=== PATIENT | male | born 1995 | race Caucasian/White ===

== ENCOUNTER 2017-05-27 16:34 | Emergency (ER) | payer SELFPAY ==
--- NOTE | 2017-05-27 17:35 | ED Physician Chart ---
Chief Complaint/HPI - Patient Information Date Seen:: 05/27/17 Time Seen:: 16:50 Chief Complaint:: Diffuse abdominal cramp since last evening. History of Present Illness:: Pt came in by private auto because of constant diffuse abdominal crampy pain since 11 pm yesterday. Pain can be aggravated with body movements. No fever. Transient N/V earlier this afternoon. Vomitus consists of gastric content. No hematemesis. Last BM at about 4 pm today that was slightly loose. No hematochezia or melena. No lightheadedness. Pt denies any recent travel, antibiotic use, or ingestion of any contaminated food or liquid. Allergies:: Allergies Allergy/AdvReac Type Severity Reaction Status Date / Time No Known Allergies Allergy Verified 05/27/17 16:55 Vitals:: Vital Signs - 8 hr 05/27/17 17:00 Temp 98.1 F HR 83 RR 17 BP 139/72 O2 Sat % 97 Historian:: Patient Family MD/PCP:: unknown LMP:: N/A Review:: Nurse's Note Reviewed Review of Systems - Review of Systems General/Constitutional: No fever, No chills, No weight loss, No weakness, No diaphoresis, No edema, Loss of appetite (?) Skin: No skin lesions, No rash, No bruising Head: No headache, No light-headedness Eyes: No loss of vision, No pain, No diplopia ENT: No earache, No nasal drainage, No sore throat, No tinnitus Neck: No neck pain, No swelling, No thyromegaly, No stiffness, No mass noted Cardio Vascular: No chest pain, No palpitations, No edema Pulmonary: No SOB, No cough, No wheezing GI: Nausea, Vomiting (transient), Diarrhea (Nonbloody loose stool, see HPI.), Pain, No melena, No hematochezia, No constipation, No hematemesis G/U: No dysuria, No frequency, No hematuria Musculoskeletal: No bone or joint pain, No back pain, No muscle pain Endocrine: No polyuria, No polydipsia Psychiatric: No prior psych history Hematopoietic: No bruising, No lymphadenopathy Allergic/Immuno: No urticaria, No angioedema Neurological: No syncope, No focal symptoms, No weakness, No paresthesia, No headache, No dizziness, No confusion Past Medical History - Past Medical History Past Medical History: No significant medical hx Family History: Diabetes Melitus (father) Social History: Non Smoker, Alcohol (rare), No Drug Use, , Employed, Other (lives with his .) 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 Surgical History: None Psychiatricy History: None Medication: None Family Medical History - Family Member Father Hx Family Diabetes: Yes Physical Exam - Physical Examination General/Constitutional: Awake, Well-developed, well-nourished, Alert, No distress, GCS 15, Non-toxic appearing, Ambulatory Other Gen/Cons comments:: Breathes comfortably, speaks clearly, interacts normally, and ambulates without difficulty. Head: Atraumatic Eyes: Lids, conjuctiva normal, PERRL, EOMI Skin: No rash, No skin lesions, No ecchymosis, No lymphadenopathy ENMT: External ears, nose nl, Nasal exam nl, Lips, teeth, gums nl, Oropharynx nl Other ENMT comments:: Mucous membrane is slightly dry. Neck: Nontender, Full ROM w/o pain, No nuchal rigidity, No mass, No stridor Respiratory: Nl effort/Exclusion Cardio Vascular: RRR, No murmur, gallop, rubs GI: No organomegaly, No hernia, Normal BS's, Nondistended, No mass/bruits, No McBurney tenderness Other GI comments:: Diffuse tenderness to palpation. Abdomen is soft. Negative Lamb's, [place]'s, and Felix Forrester's signs. Extremities: No tenderness or effusion Neuro/Psych: Alert/oriented (oriented x 3), Judgement/insight normal, Mood normal, Normal gait, No focal deficits Labs/Radiology/EKG Results - Lab Results Results: Laboratory Tests 05/27/17 05/27/17 05/27/17 17:51 17:51 17:51 WBC 5.4 RBC 5.36 Hgb 15.6 Hct 46.4 MCV 86.6 MCH 29.1 MCHC Differential 33.6 RDW 12.9 Plt Count 226 MPV 7.5 Neutrophils % 60.7 Lymphocytes % 28.3 Monocytes % 8.3 Eosinophils % 2.3 Basophils % 0.4 PT 10.0 INR 0.96 PTT (Actin FS) 28.4 Sodium 136 Potassium 3.4 L Chloride 103 Carbon Dioxide 31.0 Anion Gap 5.4 L BUN 8 Creatinine 0.7 Est GFR ( Amer) > 60.0 Est GFR (Non-Af Amer) > 60.0 BUN/Creatinine Ratio 11.4 Glucose 94 Calcium 9.7 Total Bilirubin 0.8 AST 19 ALT 27 Alkaline Phosphatase 93 Total Protein 6.5 Albumin 4.6 Globulin 1.9 Albumin/Globulin Ratio 2.4 H Amylase 40 Lipase 19 Laboratory Last Values WBC 5.4 Th/cmm (4.8-10.8) 05/27/17 17:51 RBC 5.36 Mil/cmm (4.30-5.70) 05/27/17 17:51 Hgb 15.6 gm/dL (13.2-17.3) 05/27/17 17:51 Hct 46.4 % (39.0-49.0) 05/27/17 17:51 MCV 86.6 fl (80-99) 05/27/17 17:51 MCH 29.1 pg (26.0-30.0) 05/27/17 17:51 MCHC Differential 33.6 pg (28.0-36.0) 05/27/17 17:51 RDW 12.9 % (11.5-20.0) 05/27/17 17:51 Plt Count 226 Th/cmm (150-400) 05/27/17 17:51 MPV 7.5 fl 05/27/17 17:51 Neutrophils % 60.7 % (40.0-80.0) 05/27/17 17:51 Lymphocytes % 28.3 % (20.0-50.0) 05/27/17 17:51 Monocytes % 8.3 % (2.0-10.0) 05/27/17 17:51 Eosinophils % 2.3 % (0.0-5.0) 05/27/17 17:51 Basophils % 0.4 % (0.0-2.0) 05/27/17 17:51 PT 10.0 SECONDS (9.5-11.5) 05/27/17 17:51 INR 0.96 (0.5-1.4) 05/27/17 17:51 PTT (Actin FS) 28.4 SECONDS (26.0-38.0) 05/27/17 17:51 Sodium 136 mEq/L (136-145) 05/27/17 17:51 Potassium 3.4 mEq/L (3.5-5.1) L 05/27/17 17:51 Chloride 103 mEq/L (98-107) 05/27/17 17:51 Carbon Dioxide 31.0 mEq/L (21.0-31.0) 05/27/17 17:51 Anion Gap 5.4 (7.0-16.0) L 05/27/17 17:51 BUN 8 mg/dL (7-25) 05/27/17 17:51 Creatinine 0.7 mg/dL (0.7-1.3) 05/27/17 17:51 Est GFR ( Amer) > 60.0 ml/min (>90) 05/27/17 17:51 Est GFR (Non-Af Amer) > 60.0 ml/min 05/27/17 17:51 BUN/Creatinine Ratio 11.4 05/27/17 17:51 Glucose 94 mg/dL (70-105) 05/27/17 17:51 Calcium 9.7 mg/dL (8.6-10.3) 05/27/17 17:51 Total Bilirubin 0.8 mg/dL (0.3-1.0) 05/27/17 17:51 AST 19 U/L (13-39) 05/27/17 17:51 ALT 27 U/L (7-52) 05/27/17 17:51 Alkaline Phosphatase 93 U/L (34-104) 05/27/17 17:51 Total Protein 6.5 gm/dL (6.0-8.3) 05/27/17 17:51 Albumin 4.6 gm/dL (4.2-5.5) 05/27/17 17:51 Globulin 1.9 gm/dL 05/27/17 17:51 Albumin/Globulin Ratio 2.4 (1.0-1.8) H 05/27/17 17:51 Amylase 40 U/L (29-103) 05/27/17 17:51 Lipase 19 U/L (11-82) 05/27/17 17:51 Urine Source CLEAN C 05/27/17 19:15 Urine Color YELLOW 05/27/17 19:15 Urine Clarity CLOUDY (CLEAR) 05/27/17 19:15 Urine pH 6.5 (4.6 - 8.0) 05/27/17 19:15 Ur Specific [place] 1.020 (1.005-1.030) 05/27/17 19:15 Urine Protein NEGATIVE mg/dL (NEGATIVE) 05/27/17 19:15 Urine Glucose (UA) NEGATIVE mg/dL (NEGATIVE) 05/27/17 19:15 Urine Ketones NEGATIVE mg/dL (NEGATIVE) 05/27/17 19:15 Urine Blood TRACE (NEGATIVE) 05/27/17 19:15 Urine Nitrate NEGATIVE (NEGATIVE) 05/27/17 19:15 Urine Bilirubin NEGATIVE (NEGATIVE) 05/27/17 19:15 Urine Urobilinogen 0.2 E.U./dL (0.2 - 1.0) 05/27/17 19:15 Ur Leukocyte Esterase NEGATIVE (NEGATIVE) 05/27/17 19:15 Urine RBC 2-5 /hpf (0-5) H 05/27/17 19:15 Urine WBC 0-2 /hpf (0-5) 05/27/17 19:15 Ur Epithelial Cells FEW /lpf (FEW) 05/27/17 19:15 Urine Bacteria FEW /hpf (NONE SEEN) 05/27/17 19:15 Hyaline Casts 2-5 /lpf (0-2) H 05/27/17 19:15 - Radiology Results Results: CT of abdomen and pelvis without contrast: distended abdomen with food contents. Mild diverticulosis, no diverticulitis. No appendicitis. No free fluid. Mildly prominent inguinal lymph nodes. Official report per Dr. Alejandro Art, Radiologist. ED Septic Shock - . Is Septic Shock (SBP<90, OR Lactate>4 mmol\L) present?: No - <6hrs of presentation: Vital Signs: Vital Signs - 8 hr 05/27/17 17:00 Temp 98.1 F HR 83 RR 17 BP 139/72 O2 Sat % 97 Reassessment (Disposition) - Reassessment Reassessment:: 1939 Pt feels much better and does not need more pain control. Awaiting CT. 2234 Pt has been repeatedly evaluated. Pt has been pain free. No N/V/D. CT report just became available. Lab and CT findings have been reviewed with pt. Pt requests to go home now and does not want further observation/management in hospital. Aftercare instructions have been given. His will drive him home. Reassessment Condition:: Improved - Diagnosis Diagnosis:: Transient abdominal pain due to poor gastric emptying. Stable and currently asymptomatic. Mild hypokalemia, stable. - Aftercare/Follow up Instructions Aftercare/Follow-Up Instructions:: Refer to Discharge Instructions Notes:: Bedrest for now. Clear liquid diet for now. Advance diet as tolerated as directed starting tomorrow.. Increase oral intake of potassium rich foodstuffs such as orange juice, banana, etc. Drowsiness precautions given with the use of Dilaudid. Abdominal pain instructions given. F/U with Dr. Bose or PCP of pt's choice in one day for recheck with repeat lab study: BMP. Return to ER immediately if condition worsens or if any further questions/problems. Medication Prescribed:: None - Patient Disposition Discharge/Transfer:: Home Time:: 22:45 Condition at Disposition:: Stable, Improved ED Discharge Plan - Patient Disposition Admit/Discharge/Transfer: PT DISCHARGED HOME Condition at Disposition: Improved Instructions: Abdominal Pain, [id number] Additional Instructions: FOLLOW UP WITH YOUR REGULAR DOCTOR OR AT YOUR LOCAL MEDICAL CLINIC FOR F/U. Forms: Work Release Form
[2017-05-27] MEDS ORDERED: HYDROmorphone 1 mg/mL 1mL Syr IVP STA (17:44)
[2017-05-27] MEDS ORDERED: Sodium Chloride 0.9% 1,000 ML IV ONE (17:46)
[2017-05-27 17:59] LABS: % BASOPHILS 0.4 % (0.0-2.0); % EOSINOPHILS 2.3 % (0.0-5.0); % LYMPHOCYTES 28.3 % (20.0-50.0); % MONOCYTES 8.3 % (2.0-10.0); % NEUTROPHILS 60.7 % (40.0-80.0); HEMATOCRIT 46.4 % (39.0-49.0); HEMOGLOBIN 15.6 gm/dL (13.2-17.3); MEAN CELL VOLUME 86.6 fl (80-99); MEAN CORPUSCULAR HEMOGLOBIN 29.1 pg (26.0-30.0); MEAN CORPUSCULAR HGB CONC 33.6 pg (28.0-36.0); MEAN PLATELET VOLUME 7.5 fl; NEUTROPHILE ABSOLUTE 3.4 Th/cmm (1.8-8.0); PLATELET COUNT 226 Th/cmm (150-400); RED BLOOD COUNT 5.36 Mil/cmm (4.30-5.70); RED CELL DISTRIBUTION WIDTH 12.9 % (11.5-20.0); WHITE BLOOD COUNT 5.4 Th/cmm (4.8-10.8)
[2017-05-27 18:15] LABS: ALB/GLOB RATIO 2.4 (1.0-1.8); ALKALINE PHOSPHATASE 93 U/L (34-104); AMYLASE SERUM 40 U/L (29-103); ANION GAP 5.4 (7.0-16.0); BILIRUBIN,TOTAL 0.8 mg/dL (0.3-1.0); BUN - UREA NITROGEN 8 mg/dL (7-25); BUN/CREATININE RATIO 11.4; CALCIUM SERUM 9.7 mg/dL (8.6-10.3); CHLORIDE 103 mEq/L (98-107); CREATININE - SERUM 0.7 mg/dL (0.7-1.3); GLUCOSE 94 mg/dL (70-105); LIPASE 19 U/L (11-82); POTASSIUM SERUM 3.4 mEq/L (3.5-5.1); SGOT 19 U/L (13-39); SGPT/ALT 27 U/L (7-52); SODIUM SERUM 136 mEq/L (136-145)
[2017-05-27 18:19] LABS: INR 0.96 (0.5-1.4)
[2017-05-27] MEDS ORDERED: HYDROmorphone 1 mg/mL 1mL Syr ONE (18:19)
[2017-05-27] MEDS ORDERED: Potassium Chloride 20 mEq ER Tab PO ONE ×2 (19:14→19:31)
[2017-05-27 21:45] LABS: URINE BILIRUBIN NEGATIVE (NEGATIVE); URINE BLOOD TRACE (NEGATIVE); URINE GLUCOSE (UA) NEGATIVE (NEGATIVE); URINE KETONE NEGATIVE (NEGATIVE); URINE PH 6.5 (4.6 - 8.0); URINE PROTEIN NEGATIVE (NEGATIVE); URINE UROBILINOGEN 0.2 E.U./dL (0.2 - 1.0)
[2017-05-27 21:53] LABS: URINE BACTERIA FEW /hpf (NONE SEEN); URINE COLOR YELLOW; URINE EPITHELIAL CELLS FEW /lpf (FEW); URINE WBC 0-2 /hpf (0-5)
--- NOTE | 2017-05-28 08:31 | Diagnostic Imaging Report ---
CT abdomen and pelvis without intravenous contrast Indication: Diffuse Abdominal pain Comparison: None, Technique: Axial images were obtained from the lung bases to the bilateral proximal femurs without IV contrast. Coronal reconstructions were made. total DLP: 575, CTDI10.8 FINDINGS: Hypoventilatory atelectatic lung changes are noted. Assessment of the solid organs is limited due to lack of IV contrast. No evidence of focal hepatic, splenic, pancreatic, or adrenal lesions. No evidence of hydronephrosis or nephrolithiasis. Minimal diverticulosis is noted. No evidence of diverticulitis. No appendicitis. No evidence of small bowel obstruction. Distended stomach is seen containing food contents. No evidence of free fluid. Mildly prominent bilateral inguinal lymph nodes are noted. No evidence of free abdominal air. The osseous structures demonstrate no acute abnormalities. Bone islands are seen within the pelvis. IMPRESSION: Distended fluid-filled stomach. No evidence of small bowel obstruction Minimal diverticulosis without evidence of diverticulitis No evidence of appendicitis. No evidence of free fluid. Mildly prominent bilateral inguinal lymph nodes, nonspecific.
== END 2017-05-27 22:47 | disposition home or self-care (01) ==
LOC: ER 16:34
DX: E87.6 Hypokalemia (principal); R10.84 Generalized abdominal pain
CPT/HCPCS: 99285; 96361; 96374; 96375; 74176; 36415; 85025; 85610; 81001; 82150; 83690; 80053; J2405; J1170; J7030